=== PATIENT | male | born 1980 | race Caucasian/White ===

== ENCOUNTER 2016-07-25 08:00 | Emergency (ER) | payer MEDICAID ==
[2016-07-25 08:11] VITALS: BP 118/63
--- NOTE | 2016-07-25 08:41 | EDM.PDOC ---
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 Past medical history: As per history of present illness and as reviewed below otherwise noncontributory. Surgical history: As per history of present illness and as reviewed below otherwise noncontributory. Social history: No reported history of drug or alcohol abuse. Family history: As per history of present illness and as reviewed below otherwise noncontributory. Physical exam: HEENT: Approximately 3 cm moderate depth left temporal parietal scalp laceration is no step-off no depression good hemostasis normocephalic, pupils reactive, negative for conjunctival pallor or scleral icterus, mucous membranes moist, throat clear, neck supple, nontender, trachea midline. Lungs: Clear to auscultation, breath sounds equal bilaterally, chest nontender. Heart: S1S2, regular, negative for clicks, rubs, or JVD. Abdomen: Soft, nondistended, nontender. Negative for masses or hepatosplenomegaly. Negative for costovertebral tenderness. Pelvis: Stable nontender. Genitourinary: Deferred. Rectal: Deferred. Extremities: Atraumatic, negative for cords or calf pain. Neurovascular unremarkable. Neuro: Awake at baseline her and nonfocal neuro exam Diagnostics: CT brain Therapeutics: Wound Was irrigated with copious amounts 0.9 normal saline closed with stainless steel salvador bacitracin was applied Impression: #1 observation status post fall with head injury/scalp laceration Definitive disposition and diagnosis as appropriate pending reevaluation and review of above. - Related Data Allergies Allergy/AdvReac Type Severity Reaction Status Date / Time No Known Allergies Allergy Verified 07/25/16 08:08 Home Meds: Home Meds Chalestryamine DAILY 12/09/13 [History] LORazepam 1 mg PO PRN 12/09/13 [History] Melatonin 12 mg PO BEDTIME 12/09/13 [History] Multivitamins/Minerals [Vitamins and Minerals] 1 DAILY 12/09/13 [History] Nystatin [Nystatin Crm] 15 gm TOP BID 12/09/13 [History] OXcarbazepine [Trileptal] 300 mg PO TID 12/09/13 [History] Riboflavin 400 mg PO DAILY 12/09/13 [History] Ubidecarenone [Coenzyme Q10] 300 mg PO DAILY 12/09/13 [History] Past Medical History Cardiovascular History: Reports: None Respiratory History: Reports: Pneumothorax, Other (See Below) Other Respiratory History: pulomary stenosis, 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 Neurological History: Reports: Cerebral Palsy, Other (See Below) Other Neuro History: spastic quadriplegia - Past Surgical History HEENT Surgical History: Reports: Eye Surgery, Other (See Below) Other HEENT Surgeries/Procedures: surgery to open tear ducts, dental surgery GI Surgical History: Reports: Colostomy Musculoskeletal Surgical History: Reports: Other (See Below) Other Musculoskeletal Surgeries/Procedures:: lengthen of heel cords Social & Family History - Family History Family Medical History: Noncontributory - Tobacco Use Smoking Status *Q: Never Smoker - Caffeine Use Caffeine Use: Reports: None - Alcohol Use Days Per Week of Alcohol Use: 0 - Recreational Drug Use Recreational Drug Use: No ED ROS GENERAL - Review of Systems Review Of Systems: ROS reveals no pertinent complaints other than HPI. ED EXAM, HEAD INJURY - Physical Exam Exam: See Below (See dictation) Course - Vital Signs Last Recorded V/S: Last Vital Signs Temp 36.3 C 07/25/16 08:08 Pulse 70 07/25/16 08:08 Resp 18 07/25/16 08:08 BP 118/63 07/25/16 08:08 Pulse Ox 97 07/25/16 08:08 - Orders/Labs/Meds Orders: Active Orders 24 hr Category Date Time Status Head wo Cont [CT] Stat Exams 07/25/16 08:02 Taken Departure - Departure Time of Disposition: 08:40 Disposition: Home, Self-Care 01 Condition: good Clinical Impression: Head injury, Scalp laceration - Discharge Information Forms: ED Department Discharge Additional Instructions: The following information is given to patients seen in the emergency department who are being discharged to home. This information is to outline your options for follow-up care. We provide all patients seen in our emergency department with a follow-up referral. The need for follow-up, as well as the timing and circumstances, are variable depending upon the specifics of your emergency department visit. If you don't have a primary care physician on staff, we will provide you with a referral. We always advise you to contact your personal physician following an emergency department visit to inform them of the circumstance of the visit and for follow-up with them and/or the need for any referrals to a consulting specialist. The emergency department will also refer you to a specialist when appropriate. This referral assures that you have the opportunity for followup care with a specialist. All of these measure are taken in an effort to provide you with optimal care, which includes your followup. Under all circumstances we always encourage you to contact your private physician who remains a resource for coordinating your care. When calling for followup care, please make the office aware that this follow-up is from your recent emergency room visit. If for any reason you are refused follow-up, please contact the [facility] emergency department at and asked to speak to the emergency department charge nurse. [] Followup primary medical doctor one to 2 days staple removal 10-14 days return as needed discussed - My Orders Last 24 Hours: My Active Orders 07/25/16 08:02 Head wo Cont [CT] Stat - Assessment/Plan Last 24 Hours: My Active Orders 07/25/16 08:02 Head wo Cont [CT] Stat
--- NOTE | 2016-07-25 08:45 | CT ---
EXAMINATION: Non contrast CT head. Coronal and sagittal reformats. HISTORY: Fall FINDINGS: No evidence of intra or extra axial hemorrhage, mass, midline shift, hydrocephalus or edema. No hypoattenuation changes in the major vascular territories to suggest acute infarct. No abnormal intracranial calcifications are detected. No evidence of substantial vascular calcifica tions. The paranasal sinuses are grossly clear. There is a trace fluid within the left mastoid air cells. T he middle ears are clear. Pituitary fossa appears unremarkable. The orbits and globes are symmetric. Calvarium is intact. No evidence of skull fracture. There is a small subcutaneous laceration along t he left temporal region. IMPRESSION: No acute intracranial findings.
== END 2016-07-25 09:00 | disposition home or self-care (01) ==
LOC: MW.ED 08:00
DX: S01.01XA Laceration without foreign body of scalp, initial encounter (principal); Z98.890 Other specified postprocedural states; Z79.899 Other long term (current) drug therapy; W19.XXXA Unspecified fall, initial encounter
CPT/HCPCS: 12002; 70450; 70450-26; 99283-25; 99284

== ENCOUNTER 2016-08-05 08:36 | Emergency (ER) | payer MEDICAID ==
--- NOTE | 2016-08-05 08:50 | EDM.PDOC ---
ED HPI GENERAL MEDICAL PROBLEM - General Chief Complaint: Wound Recheck Stated Complaint: STICHES REMOVED Time Seen by Provider: 08/05/16 08:43 Source of Information: Reports: Patient, Family History Limitations: Reports: Other. Denies: No Limitations - History of Present Illness INITIAL COMMENTS - FREE TEXT/NARRATIVE: History of present illness: [] Patient presents for a wound check and removal of scalp salvador. Patient presents with family as he is nonverbal. No complaints or history of fevers. Review of systems: As per history of present illness and below otherwise all systems reviewed and negative. Past medical history: As per history of present illness and as reviewed below otherwise noncontributory. Surgical history: As per history of present illness and as reviewed below otherwise noncontributory. Social history: No reported history of drug or alcohol abuse. Family history: As per history of present illness and as reviewed below otherwise noncontributory. Physical exam: General: Well developed, well nourished in NAD HEENT: Laceration healing without signs of infection, salvador removed by nursing , normocephalic, pupils reactive, negative for conjunctival pallor or scleral icterus, mucous membranes moist, throat clear, neck supple, nontender, trachea midline. Lungs: Clear to auscultation, breath sounds equal bilaterally, chest nontender. Heart: S1S2, regular, negative for clicks, rubs, or JVD. Abdomen: Soft, nondistended, nontender. Negative for masses or hepatosplenomegaly. Negative for costovertebral tenderness. Pelvis: Stable nontender. Genitourinary: Deferred. Rectal: Deferred. Extremities: Atraumatic. Neurovascular unremarkable. Neuro: Awake, alert. Cerebellum unremarkable. Motor and sensory unremarkable throughout. Exam nonfocal. Diagnostics: [] Therapeutics: [] Impression: [] Wound check/staple removal of scalp laceration Plan: [] Followup PMD as needed Definitive disposition and diagnosis as appropriate pending reevaluation and review of above. - Related Data Allergies Allergy/AdvReac Type Severity Reaction Status Date / Time No Known Allergies Allergy Verified 07/25/16 08:08 Home Meds: Home Meds Melatonin 12 mg PO BEDTIME 12/09/13 [History] Multivitamins/Minerals [Vitamins and Minerals] 1 tab PO DAILY 12/09/13 [History] Nystatin [Nystatin Crm] 1 gm TOP BID 12/09/13 [History] OXcarbazepine [Trileptal] 300 mg PO TID 12/09/13 [History] Riboflavin 400 mg PO DAILY 12/09/13 [History] Ubidecarenone [Coenzyme Q10] 300 mg PO DAILY 12/09/13 [History] Ascorbic Acid [Vitamin C] 1,000 mg PO DAILY 07/25/16 [History] Benzonatate 200 mg PO Q8H PRN 07/25/16 [History] Cholestyramine/Sucrose [Cholestyramine] 4 gm PO WITHDINNER 07/25/16 [History] Cyanocobalamin (Vitamin B-12) [B-12] 1,000 mcg PO DAILY 07/25/16 [History] Folic Acid 0.4 mg PO DAILY 07/25/16 [History] LORazepam [Ativan] 2 mg PO ONCALL PRN 07/25/16 [History] Thiamine HCl [B-1] 400 mg PO DAILY 07/25/16 [History] Vitamin E 400 unit PO DAILY 07/25/16 [History] Past Medical History Cardiovascular History: Reports: None Respiratory History: Reports: Pneumothorax, Other (See Below) Other Respiratory History: pulomary stenosis, 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 Neurological History: Reports: Cerebral Palsy, Other (See Below) Other Neuro History: spastic quadriplegia - Past Surgical History HEENT Surgical History: Reports: Eye Surgery, Other (See Below) Other HEENT Surgeries/Procedures: surgery to open tear ducts, dental surgery GI Surgical History: Reports: Colostomy Musculoskeletal Surgical History: Reports: Other (See Below) Other Musculoskeletal Surgeries/Procedures:: lengthen of heel cords Social & Family History - Family History Family Medical History: Noncontributory - Tobacco Use Smoking Status *Q: Never Smoker - Caffeine Use Caffeine Use: Reports: None - Alcohol Use Days Per Week of Alcohol Use: 0 - Recreational Drug Use Recreational Drug Use: No ED ROS GENERAL - Review of Systems Review Of Systems: Unable To Obtain ED EXAM, SKIN/RASH Exam: See Below (See history of present illness) Departure - Departure Time of Disposition: 08:49 Disposition: Home, Self-Care 01 Condition: good Clinical Impression: Visit for wound check, Removal of salvador - Discharge Information Forms: ED Department Discharge Additional Instructions: The following information is given to patients seen in the emergency department who are being discharged to home. This information is to outline your options for follow-up care. We provide all patients seen in our emergency department with a follow-up referral. The need for follow-up, as well as the timing and circumstances, are variable depending upon the specifics of your emergency department visit. If you don't have a primary care physician on staff, we will provide you with a referral. We always advise you to contact your personal physician following an emergency department visit to inform them of the circumstance of the visit and for follow-up with them and/or the need for any referrals to a consulting specialist. The emergency department will also refer you to a specialist when appropriate. This referral assures that you have the opportunity for follow-up care with a specialist. All of these measure are taken in an effort to provide you with optimal care, which includes your follow-up. Under all circumstances we always encourage you to contact your private physician who remains a resource for coordinating your care. When calling for follow-up care, please make the office aware that this follow-up is from your recent emergency room visit. If for any reason you are refused follow-up, please contact the [facility] Emergency Department at and asked to speak to the emergency department charge nurse. [facility] [address] [place] [id number]
== END 2016-08-05 08:49 | disposition home or self-care (01) ==
LOC: MW.ED 08:36
DX: S01.01XD Laceration without foreign body of scalp, subsequent encounter (principal); X58.XXXD Exposure to other specified factors, subsequent encounter

== ENCOUNTER 2017-12-03 14:41 | Emergency (ER) | payer MEDICAID ==
[2017-12-03 14:56] VITALS: BP 84/48
--- NOTE | 2017-12-03 15:03 | EDM.PDOC ---
ED HPI GENERAL MEDICAL PROBLEM - General Stated Complaint: left hand swelling Time Seen by Provider: 12/03/17 14:42 Source of Information: Reports: Other History Limitations: Reports: Physical Impairment - History of Present Illness INITIAL COMMENTS - FREE TEXT/NARRATIVE: History of present illness: []Patient has severe cerebral palsy and nonverbal was eating pizza this afternoon and his caregivers noted his left hand swelling with redness. Patient frequently puts his fingers in his mouth and there is noted pinpoint area over his dorsal left ring PIP joint or the skin is broken. There is no purulent drainage. He has not been having fevers and he is acting normal. Review of systems: As per history of present illness and below otherwise all systems reviewed and negative. Past medical history: As per history of present illness and as reviewed below otherwise noncontributory. Surgical history: As per history of present illness and as reviewed below otherwise noncontributory. Social history: No reported history of drug or alcohol abuse. Family history: As per history of present illness and as reviewed below otherwise noncontributory. Physical exam: General: Well developed, well nourished in NAD uncooperative for exam HEENT: Atraumatic, normocephalic, pupils reactive, negative for conjunctival pallor or scleral icterus, mucous membranes moist, throat clear, neck supple, nontender, trachea midline. Lungs: Clear to auscultation, breath sounds equal bilaterally, chest nontender. Heart: S1S2, regular, negative for clicks, rubs, or JVD. Abdomen: Soft, nondistended, nontender. Negative for masses or hepatosplenomegaly. Negative for costovertebral tenderness. Pelvis: Stable nontender. Genitourinary: Deferred. Rectal: Deferred. Extremities: Left hand with erythema and swelling over the MCP joints the small ring and middle fingers, there is noted skin breakage of the dorsal ring PIP joint there is no purulent drainage or fluctuance is noted to move his hand and finger joints spontaneously, brisk capillary refill. Neurovascular unremarkable. Neuro: Awake, alert, Exam nonfocal. Skin:warm and dry Diagnostics: None Therapeutics: None ED Course: Clinical Impression: Left hand cellulitis without tenosynovitis Prescriptions: Keflex Plan: Warm soaks keep hand clean take antibiotics as directed follow-up with primary care Definitive disposition and diagnosis as appropriate pending reevaluation and review of above. - Related Data Allergies Allergy/AdvReac Type Severity Reaction Status Date / Time No Known Allergies Allergy Verified 12/03/17 14:56 Home Meds: Home Meds Melatonin 12 mg PO BEDTIME 12/09/13 [History] Multivitamins/Minerals [Vitamins and Minerals] 1 tab PO DAILY 12/09/13 [History] OXcarbazepine [Trileptal] 300 mg PO TID 12/09/13 [History] Riboflavin 400 mg PO DAILY 12/09/13 [History] Ubidecarenone [Coenzyme Q10] 300 mg PO DAILY 12/09/13 [History] Ascorbic Acid [Vitamin C] 1,000 mg PO DAILY 07/25/16 [History] Cholestyramine/Sucrose [Cholestyramine] 4 gm PO WITHDINNER 07/25/16 [History] Cyanocobalamin (Vitamin B-12) [B-12] 1,000 mcg PO DAILY 07/25/16 [History] Folic Acid 0.4 mg PO DAILY 07/25/16 [History] LORazepam [Ativan] 2 mg PO ONCALL PRN 07/25/16 [History] Vitamin E 400 unit PO DAILY 07/25/16 [History] cephALEXin [Keflex] 500 mg PO Q8H #21 cap 12/03/17 [Rx] Past Medical History Cardiovascular History: Reports: None Respiratory History: Reports: Pneumothorax, Other (See Below) Other Respiratory History: pulomary stenosis, 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 Neurological History: Reports: Cerebral Palsy, Other (See Below) Other Neuro History: spastic quadriplegia - Past Surgical History HEENT Surgical History: Reports: Eye Surgery, Other (See Below) Other HEENT Surgeries/Procedures: surgery to open tear ducts, dental surgery GI Surgical History: Reports: Colostomy Musculoskeletal Surgical History: Reports: Other (See Below) Other Musculoskeletal Surgeries/Procedures:: lengthen of heel cords Social & Family History - Family History Family Medical History: Noncontributory - Caffeine Use Caffeine Use: Reports: None Review of Systems - Review of Systems Review Of Systems: ROS reveals no pertinent complaints other than HPI. ED EXAM, GENERAL - Physical Exam Exam: See Below (See history of present illness) Course - Vital Signs Last Recorded V/S: Last Vital Signs Temp 97.6 F 12/03/17 14:54 Pulse Resp 20 12/03/17 14:54 BP 84/48 L 12/03/17 14:54 Pulse Ox Departure - Departure Time of Disposition: 15:03 Disposition: Home, Self-Care 01 Condition: Good Clinical Impression: Cellulitis of left hand - Discharge Information *PRESCRIPTION DRUG MONITORING PROGRAM REVIEWED*: Not Applicable *COPY OF PRESCRIPTION DRUG MONITORING REPORT IN PATIENT JEAN-PIERRE: Not Applicable Prescriptions: cephALEXin [Keflex] 500 mg PO Q8H #21 cap Additional Instructions: The following information is given to patients seen in the emergency department who are being discharged to home. This information is to outline your options for follow-up care. We provide all patients seen in our emergency department with a follow-up referral. The need for follow-up, as well as the timing and circumstances, are variable depending upon the specifics of your emergency department visit. If you don't have a primary care physician on staff, we will provide you with a referral. We always advise you to contact your personal physician following an emergency department visit to inform them of the circumstance of the visit and for follow-up with them and/or the need for any referrals to a consulting specialist. The emergency department will also refer you to a specialist when appropriate. This referral assures that you have the opportunity for follow-up care with a specialist. All of these measure are taken in an effort to provide you with optimal care, which includes your follow-up. Under all circumstances we always encourage you to contact your private physician who remains a resource for coordinating your care. When calling for follow-up care, please make the office aware that this follow-up is from your recent emergency room visit. If for any reason you are refused follow-up, please contact the [facility] Emergency Department at and asked to speak to the emergency department charge nurse. Warm soaks take antibiotics as directed follow-up with primary care [facility] [place] [id number]
== END 2017-12-03 15:10 | disposition home or self-care (01) ==
LOC: MW.ED 14:41
DX: L03.114 Cellulitis of left upper limb (principal); M65.9 Synovitis and tenosynovitis, unspecified; Z79.899 Other long term (current) drug therapy
CPT/HCPCS: 99283

== ENCOUNTER 2018-06-25 08:11 | Emergency (ER) | payer MEDICAID ==
--- NOTE | 2018-06-25 08:40 | EDM.PDOC ---
ED HPI GENERAL MEDICAL PROBLEM - General Chief Complaint: Neuro Symptoms/Deficits Stated Complaint: AMB Time Seen by Provider: 06/25/18 08:37 - History of Present Illness INITIAL COMMENTS - FREE TEXT/NARRATIVE: HISTORY AND PHYSICAL: History of present illness: Patient is a 37-year-old white male [place] with the known seizure disorders been seizure-free for years who presents after generalized seizure lasting approximately 8 minutes there was no associated trauma he's been in his usual state of health until postictal period is baseline on arrival. There's been no fever chills vomiting no recent trauma and no other complaints. He is on Tegretol and does have his levels checked regularly and have not been reported to be abnormal. Review of systems: As per history of present illness and below otherwise all systems reviewed and negative. Past medical history: As per history of present illness and as reviewed below otherwise noncontributory. Surgical history: As per history of present illness and as reviewed below otherwise noncontributory. Social history: No reported history of drug or alcohol abuse. Family history: As per history of present illness and as reviewed below otherwise noncontributory. Physical exam: HEENT: Atraumatic, normocephalic, pupils reactive, negative for conjunctival pallor or scleral icterus, mucous membranes moist, throat clear, neck supple, nontender, trachea midline. Lungs: Clear to auscultation, breath sounds equal bilaterally, chest nontender. Heart: S1S2, regular, negative for clicks, rubs, or JVD. Abdomen: Soft, nondistended, nontender. Negative for masses or hepatosplenomegaly. Negative for costovertebral tenderness. Pelvis: Stable nontender. Genitourinary: Deferred. Rectal: Deferred. Extremities: Atraumatic, negative for cords or calf pain. Neurovascular unremarkable. Neuro: Awake, alert, moves all extremities baseline per family Diagnostics: CBC CMP carbamazepine level chest x-ray CT brain Therapeutics: None Impression: #1 seizure with known seizure disorder Definitive disposition and diagnosis as appropriate pending reevaluation and review of above. - Related Data Allergies Allergy/AdvReac Type Severity Reaction Status Date / Time No Known Allergies Allergy Verified 06/25/18 08:14 Home Meds: Home Meds Melatonin 12 mg PO BEDTIME 12/09/13 [History] Multivitamins/Minerals [Vitamins and Minerals] 1 tab PO DAILY 12/09/13 [History] OXcarbazepine [Trileptal] 300 mg PO TID 12/09/13 [History] Riboflavin 400 mg PO DAILY 12/09/13 [History] Ubidecarenone [Coenzyme Q10] 300 mg PO DAILY 12/09/13 [History] Ascorbic Acid [Vitamin C] 1,000 mg PO DAILY 07/25/16 [History] Cholestyramine/Sucrose [Cholestyramine] 4 gm PO WITHDINNER 07/25/16 [History] Cyanocobalamin (Vitamin B-12) [B-12] 1,000 mcg PO DAILY 07/25/16 [History] Folic Acid 0.4 mg PO DAILY 07/25/16 [History] Vitamin E 400 unit PO DAILY 07/25/16 [History] Thiamine [Vitamin B-1] 400 mg PO DAILY 02/02/18 [History] traZODone HCl [Trazodone HCl] 50 mg PO BEDTIME 02/16/18 [History] Past Medical History Cardiovascular History: Reports: None Respiratory History: Reports: Pneumothorax, Other (See Below) Other Respiratory History: pulomary stenosis, 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 Neurological History: Reports: Cerebral Palsy, Seizure, Other (See Below) Other Neuro History: spastic quadriplegia Psychiatric History: Reports: Anxiety - Infectious Disease History Infectious Disease History: Reports: None - Past Surgical History HEENT Surgical History: Reports: Eye Surgery, Other (See Below) Other HEENT Surgeries/Procedures: surgery to open tear ducts, dental surgery GI Surgical History: Reports: Colostomy Musculoskeletal Surgical History: Reports: Other (See Below) Other Musculoskeletal Surgeries/Procedures:: lengthen of heel cords Social & Family History - Family History Family Medical History: Noncontributory - Tobacco Use Smoking Status *Q: Unknown Ever Smoked - Caffeine Use Caffeine Use: Reports: Coffee ED ROS GENERAL - Review of Systems Review Of Systems: ROS reveals no pertinent complaints other than HPI. ED EXAM, GENERAL - Physical Exam Exam: See Below (The dictation) Course - Vital Signs Last Recorded V/S: Last Vital Signs Temp 36.8 C 06/25/18 09:23 Pulse 61 06/25/18 09:23 Resp 12 06/25/18 09:23 BP 110/70 06/25/18 09:23 Pulse Ox 97 04/26/19 09:23 - Orders/Labs/Meds Orders: Active Orders 24 hr Category Date Time Status CARBAMAZEPINE,TEGRETOL [CHEM] Stat Lab 06/25/18 08:45 Results COMPREHENSIVE METABOLIC PN,CMP [CHEM] Stat Lab 06/25/18 08:45 Results Labs: Laboratory Tests 06/25/18 06/25/18 Range/Units 08:45 08:45 WBC 2.49 L (4.0-11.0) K/uL RBC 4.56 (4.50-5.90) M/uL Hgb 15.2 (13.0-17.0) g/dL Hct 43.7 (38.0-50.0) % MCV 95.8 (80.0-98.0) fL MCH 33.3 H (27.0-32.0) pg MCHC 34.8 (31.0-37.0) g/dL RDW Std Deviation 51.5 (28.0-62.0) fl RDW Coeff of Yolanda 15 (11.0-15.0) % Plt Count 159 (150-400) K/uL MPV 8.50 (7.40-12.00) fL Neut % (Auto) 59.5 (48.0-80.0) % Lymph % (Auto) 27.7 (16.0-40.0) % [place] % (Auto) 11.2 (0.0-15.0) % Eos % (Auto) 1.2 (0.0-7.0) % Baso % (Auto) 0.4 (0.0-1.5) % Neut # (Auto) 1.5 (1.4-5.7) K/uL Lymph # (Auto) 0.7 (0.6-2.4) K/uL [place] # (Auto) 0.3 (0.0-0.8) K/uL Eos # (Auto) 0.0 (0.0-0.7) K/uL Baso # (Auto) 0.0 (0.0-0.1) K/uL Nucleated RBC % 0.0 /100WBC Nucleated RBCs # 0 K/uL Sodium 138 (136-148) mmol/L Potassium 4.4 (3.5-5.1) mmol/L Chloride 104 (98-107) mmol/L Carbon Dioxide 21.1 (21.0-32.0) mmol/L BUN 21 H (7.0-18.0) mg/dL Creatinine 0.9 (0.8-1.3) mg/dL Est Cr Clr Drug Dosing 71.40 mL/min Estimated GFR (MDRD) > 60.0 ml/min Glucose 106 (74-106) mg/dL Calcium 9.1 (8.5-10.1) mg/dL Total Bilirubin 0.4 (0.2-1.0) mg/dL AST 33 (15-37) IU/L ALT 45 (14-63) IU/L Alkaline Phosphatase 224 H (46-116) U/L Total Protein 7.2 (6.4-8.2) g/dL Albumin 4.1 (3.4-5.0) g/dL Globulin 3.1 (2.6-4.0) g/dL Albumin/Globulin Ratio 1.3 (0.9-1.6) Departure - Departure Time of Disposition: 09:25 Disposition: Home, Self-Care 01 Clinical Impression: Seizure, Encounter for medical screening examination - Discharge Information Referrals: Layton Hu MD [Primary Care Provider] - Forms: ED Department Discharge Additional Instructions: The following information is given to patients seen in the emergency department who are being discharged to home. This information is to outline your options for follow-up care. We provide all patients seen in our emergency department with a follow-up referral. The need for follow-up, as well as the timing and circumstances, are variable depending upon the specifics of your emergency department visit. If you don't have a primary care physician on staff, we will provide you with a referral. We always advise you to contact your personal physician following an emergency department visit to inform them of the circumstance of the visit and for follow-up with them and/or the need for any referrals to a consulting specialist. The emergency department will also refer you to a specialist when appropriate. This referral assures that you have the opportunity for followup care with a specialist. All of these measure are taken in an effort to provide you with optimal care, which includes your followup. Under all circumstances we always encourage you to contact your private physician who remains a resource for coordinating your care. When calling for followup care, please make the office aware that this follow-up is from your recent emergency room visit. If for any reason you are refused follow-up, please contact the [facility] emergency department at and asked to speak to the emergency department charge nurse. Continue current Medications as prescribed follow-up primary medical doctor as needed as discussed and return as needed as discussed - My Orders Last 24 Hours: My Active Orders 06/25/18 08:45 CARBAMAZEPINE,TEGRETOL [CHEM] Stat COMPREHENSIVE METABOLIC PN,CMP [CHEM] Stat - Assessment/Plan Last 24 Hours: My Active Orders 06/25/18 08:45 CARBAMAZEPINE,TEGRETOL [CHEM] Stat COMPREHENSIVE METABOLIC PN,CMP [CHEM] Stat
[2018-06-25] MEDS ORDERED: Gadobenate Dimeglumine 529 MG/ML 20 ML SDV IVPUSH STA (08:52)
--- NOTE | 2018-06-25 09:15 | CT ---
EXAMINATION: Non contrast CT head. Coronal and sagittal reformats. HISTORY: Seizure COMPARISON: 07/25/2016 FINDINGS: No evidence of intra or extra axial hemorrhage, mass, midline shift, hydrocephalus or edema. Stable mild prominence of the lateral ventricles. Likely encephalomalacia within the temporal lobes bilaterally, not well characterized due to motion, however not significantly changed. No hypoattenuation changes in the major vascular territories to suggest acute infarct. No abnormal intracranial calcifications are detected. No evidence of substantial vascular calcifications. Stable prominence of the cisterna magna. Paranasal sinuses and mastoid air cells are well aerated without substantial findings. Mostly empty sella. The calvarium is intact. No evidence of skull fracture. IMPRESSION: No acute intracranial findings.
[2018-06-25 09:16] LABS: CHLORIDE,CL 104 mmol/L (98-107); SODIUM,NA 138 mmol/L (136-148)
--- NOTE | 2018-06-25 09:21 | CR ---
EXAMINATION: Portable chest radiograph. HISTORY: Seizure. FINDINGS: The trachea is midline. Heart is normal in size for technique. The cardiomediastinal silhouette is within normal limits. No pulmonary infiltrates, effusions or pneumothorax. Healing right humerus fracture is noted. Dextrocurvature of the thoracic spine. IMPRESSION: No acute cardiopulmonary process.
[2018-06-25 09:24] VITALS: BP 110/70
== END 2018-06-25 09:53 | disposition home or self-care (01) ==
LOC: MW.ED 08:11
DX: G40.909 Epilepsy, unspecified, not intractable, without status epilepticus (principal); Z79.899 Other long term (current) drug therapy
CPT/HCPCS: 36415; 70450; 70450-26; 71045; 71045-26; 80053; 80156; 85025; 93005; 99283; 99284-25

== ENCOUNTER 2018-10-03 11:22 | Emergency (ER) | payer MEDICAID ==
[2018-10-03 11:35] VITALS: PULSE 94
--- NOTE | 2018-10-03 11:44 | EDM.PDOC ---
ED HPI GENERAL MEDICAL PROBLEM - General Stated Complaint: CHEST PAIN Time Seen by Provider: 10/03/18 11:29 Source of Information: Reports: Family History Limitations: Reports: No Limitations - History of Present Illness INITIAL COMMENTS - FREE TEXT/NARRATIVE: HISTORY AND PHYSICAL: History of present illness: Patient is a 38-year-old male who presents to the emergency room with his family with concerns of chest pain. Patient does live in a [facility] routinely. Yesterday the father states he brought him home and had picked him up to move him into a chair. Typically when the patient is lifted and moved, there is no problems. Yesterday he noted that he was grimacing when he was lifting him around his chest. The patient is typically non-verbal although can nod yes and no to questions appropriately. The father asked the patient if his chest hurts and he nodded yes. There is a small bruise noted to the left upper anterior chest, although appears old. Past medical history of seizure disorder, cerebral palsy and spastic musculature. Review of systems: As per history of present illness and below otherwise all systems reviewed and negative. Past medical history: As per history of present illness and as reviewed below otherwise noncontributory. Surgical history: As per history of present illness and as reviewed below otherwise noncontributory. Social history: See social history for further information Family history: As per history of present illness and as reviewed below otherwise noncontributory. Physical exam: General: Well-developed and well-nourished 38-year-old male. He is alert and appropriate for self. He is nonverbal which is normal for him. Typically does use a walker to transfer short distances, otherwise uses a chair. Vital signs are stable and have been reviewed by me. HEENT: Atraumatic, normocephalic, pupils equal and reactive bilaterally, negative for conjunctival pallor or scleral icterus, mucous membranes moist, TMs normal bilaterally, throat clear, neck supple, nontender, trachea midline. No drooling or trismus noted. No meningeal signs. No hot potato voice noted. Lungs: Clear to auscultation, breath sounds equal bilaterally, chest nontender. Heart: S1S2, regular rate and rhythm without overt murmur Abdomen: Soft, nondistended, nontender. Skin: Healing bruising noted to the left upper anterior chest wall. Otherwise skin is intact, warm, dry. No lesions or rashes noted. Extremities: Atraumatic, moves all extremities per self without difficulty or deficits, negative for cords or calf pain. Neurovascular unremarkable. Neuro: Awake, alert, oriented. Cranial nerves II through XII unremarkable. Cerebellum unremarkable. Motor and sensory unremarkable throughout. Exam nonfocal. Notes: Lab work is unremarkable. Chest x-ray shows no acute findings. Findings were shared with the patient and family members at bedside. Mom does now recall that he did hit the left side of his chest wall on the bathtub earlier this weekend. Will give one tablet of tramadol while here and encouraged them to use Tylenol and ibuprofen at the [facility]. Supportive care measures were reviewed and discussed. Voices understanding and is agreeable to plan of care. Denies any further questions or concerns at this time. Diagnostics: CBC, CMP, Troponin, EKG, CXR Therapeutics: None Prescription: None Impression: Chest Wall Pain Plan: 1. Please use Tylenol and/or Ibuprofen as needed for pain and fever management. 2. Gentle heat and/ice as needed. 3. Please follow up with your primary care provider. Return to the ED as needed as discussed. Definitive disposition and diagnosis as appropriate pending reevaluation and review of above. - Related Data Allergies Allergy/AdvReac Type Severity Reaction Status Date / Time No Known Allergies Allergy Verified 06/25/18 08:14 Home Meds: Home Meds Melatonin 12 mg PO BEDTIME 12/09/13 [History] Multivitamins/Minerals [Vitamins and Minerals] 1 tab PO DAILY 12/09/13 [History] OXcarbazepine [Trileptal] 300 mg PO TID 12/09/13 [History] Riboflavin 400 mg PO DAILY 12/09/13 [History] Ubidecarenone [Coenzyme Q10] 300 mg PO DAILY 12/09/13 [History] Ascorbic Acid [Vitamin C] 1,000 mg PO DAILY 07/25/16 [History] Cholestyramine/Sucrose [Cholestyramine] 4 gm PO WITHDINNER 07/25/16 [History] Cyanocobalamin (Vitamin B-12) [B-12] 1,000 mcg PO DAILY 07/25/16 [History] Folic Acid 0.4 mg PO DAILY 07/25/16 [History] Vitamin E 400 unit PO DAILY 07/25/16 [History] Thiamine [Vitamin B-1] 400 mg PO DAILY 12/04/18 [History] traZODone HCl [Trazodone HCl] 50 mg PO BEDTIME 02/16/18 [History] Past Medical History Cardiovascular History: Reports: None Respiratory History: Reports: Pneumothorax, Other (See Below) Other Respiratory History: pulomary stenosis, 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 Neurological History: Reports: Cerebral Palsy, Seizure, Other (See Below) Other Neuro History: spastic quadriplegia Psychiatric History: Reports: Anxiety - Infectious Disease History Infectious Disease History: Reports: None - Past Surgical History HEENT Surgical History: Reports: Eye Surgery, Other (See Below) Other HEENT Surgeries/Procedures: surgery to open tear ducts, dental surgery GI Surgical History: Reports: Colostomy Musculoskeletal Surgical History: Reports: Other (See Below) Other Musculoskeletal Surgeries/Procedures:: lengthen of heel cords Social & Family History - Family History Family Medical History: Noncontributory - Caffeine Use Caffeine Use: Reports: Coffee ED ROS GENERAL - Review of Systems Review Of Systems: ROS reveals no pertinent complaints other than HPI. ED EXAM, GENERAL - Physical Exam Exam: See Below (See dictation) Course - Vital Signs Last Recorded V/S: Last Vital Signs Temp 97.7 F 10/03/18 11:30 Pulse 94 10/03/18 11:30 Resp BP 125/53 L 10/03/18 11:30 Pulse Ox 96 10/03/18 11:30 - Orders/Labs/Meds Orders: Active Orders 24 hr Category Date Time Status EKG Documentation Completion [RC] STAT Care 10/03/18 11:27 Active traMADol [Ultram] Med 10/03/18 12:33 Once 50 mg PO ONETIME ONE Labs: Laboratory Tests 10/03/18 10/03/18 Range/Units 11:41 11:41 WBC 5.19 (4.0-11.0) K/uL RBC 4.51 (4.50-5.90) M/uL Hgb 15.2 (13.0-17.0) g/dL Hct 44.2 (38.0-50.0) % MCV 98.0 (80.0-98.0) fL MCH 33.7 H (27.0-32.0) pg MCHC 34.4 (31.0-37.0) g/dL RDW Std Deviation 51.5 (28.0-62.0) fl RDW Coeff of Yolanda 14 (11.0-15.0) % Plt Count 151 (150-400) K/uL MPV 8.60 (7.40-12.00) fL Neut % (Auto) 78.8 (48.0-80.0) % Lymph % (Auto) 12.7 L (16.0-40.0) % [place] % (Auto) 8.1 (0.0-15.0) % Eos % (Auto) 0.2 (0.0-7.0) % Baso % (Auto) 0.2 (0.0-1.5) % Neut # (Auto) 4.1 (1.4-5.7) K/uL Lymph # (Auto) 0.7 (0.6-2.4) K/uL [place] # (Auto) 0.4 (0.0-0.8) K/uL Eos # (Auto) 0.0 (0.0-0.7) K/uL Baso # (Auto) 0.0 (0.0-0.1) K/uL Nucleated RBC % 0.0 /100WBC Nucleated RBCs # 0 K/uL Sodium 138 (136-148) mmol/L Potassium 4.3 (3.5-5.1) mmol/L Chloride 103 (98-107) mmol/L Carbon Dioxide 26.3 (21.0-32.0) mmol/L BUN 21 H (7.0-18.0) mg/dL Creatinine 0.7 L (0.8-1.3) mg/dL Est Cr Clr Drug Dosing TNP Estimated GFR (MDRD) > 60.0 ml/min Glucose 125 H (74-106) mg/dL Calcium 9.3 (8.5-10.1) mg/dL Total Bilirubin 0.2 (0.2-1.0) mg/dL AST 26 (15-37) IU/L ALT 43 (14-63) IU/L Alkaline Phosphatase 195 H (46-116) U/L Troponin I < 0.050 (0.000-0.056) ng/mL Total Protein 7.6 (6.4-8.2) g/dL Albumin 4.2 (3.4-5.0) g/dL Globulin 3.4 (2.6-4.0) g/dL Albumin/Globulin Ratio 1.2 (0.9-1.6) Departure - Departure Time of Disposition: 12:35 Disposition: Home, Self-Care 01 Clinical Impression: Chest wall pain - Discharge Information Instructions: Chest Wall Pain, [id number] Referrals: PCP,Unknown [Primary Care Provider] - Additional Instructions: The following information is given to patients seen in the emergency department who are being discharged to home. This information is to outline your options for follow-up care. We provide all patients seen in our emergency department with a follow-up referral. The need for follow-up, as well as the timing and circumstances, are variable depending upon the specifics of your emergency department visit. If you don't have a primary care physician on staff, we will provide you with a referral. We always advise you to contact your personal physician following an emergency department visit to inform them of the circumstance of the visit and for follow-up with them and/or the need for any referrals to a consulting specialist. The emergency department will also refer you to a specialist when appropriate. This referral assures that you have the opportunity for follow-up care with a specialist. All of these measure are taken in an effort to provide you with optimal care, which includes your follow-up. Under all circumstances we always encourage you to contact your private physician who remains a resource for coordinating your care. When calling for follow-up care, please make the office aware that this follow-up is from your recent emergency room visit. If for any reason you are refused follow-up, please contact the [facility] Emergency Department at and asked to speak to the emergency department charge nurse. [facility] [address] [place] [id number] [address] [address] 1. Please use Tylenol and/or Ibuprofen as needed for pain and fever management. 2. Gentle heat and/ice as needed. 3. Please follow up with your primary care provider. Return to the ED as needed as discussed - My Orders Last 24 Hours: My Active Orders 10/03/18 11:27 EKG Documentation Completion [RC] STAT 10/03/18 12:33 traMADol [Ultram] 50 mg PO ONETIME ONE - Assessment/Plan Last 24 Hours: My Active Orders 10/03/18 11:27 EKG Documentation Completion [RC] STAT 10/03/18 12:33 traMADol [Ultram] 50 mg PO ONETIME ONE
[2018-10-03 12:14] LABS: BLOOD UREA NITROGEN,BUN 21 mg/dL (7.0-18.0); CARBON DIOXIDE,CO2 26.3 mmol/L (21.0-32.0); CHLORIDE,CL 103 mmol/L (98-107); GLUCOSE RANDOM 125 mg/dL (74-106); POTASSIUM,K 4.3 mmol/L (3.5-5.1); SODIUM,NA 138 mmol/L (136-148)
--- NOTE | 2018-10-03 12:18 | CR ---
Indication: Chest pain. Technique: A single AP portable view of the chest was obtained. Comparison: June 25, 2018. Findings: Dextroscoliosis of the spine is identified. Heart is normal in size. The lungs are clear. No infiltrate, pleural effusion, or pneumothorax is identified. Impression: No acute cardiopulmonary process. Dictated by Kassidy Wagoner MD @ Oct 03 2018 12:16PM Signed by Dr. Kassidy Wagoner @ Oct 03 2018 12:17PM
[2018-10-03] MEDS ORDERED: traMADol 50 MG Tab PO ONE (12:33)
[2018-10-03 12:58] VITALS: BP 112/80
== END 2018-10-03 12:53 | disposition home or self-care (01) ==
LOC: MW.ED 11:22
DX: R07.89 Other chest pain (principal); F41.9 Anxiety disorder, unspecified; Z79.899 Other long term (current) drug therapy
CPT/HCPCS: 36415; 71045; 80053; 84484; 85025; 93005; 99285; A9270; 99283

== ENCOUNTER 2019-09-29 07:44 | Emergency (ER) | payer MEDICAID ==
[2019-09-29 08:21] VITALS: BP 118/82; PULSE 90
[2019-09-29] MEDS ORDERED: Bupivacaine 0.5% 10 ML SDV INJECT ONE (08:48)
--- NOTE | 2019-09-29 09:57 | CT ---
CT cervical spine Technique: Multiple axial sections were obtained from above C1 inferiorly to the top of T5. Reconstructed sagittal and coronal images were reviewed. Comparison: No prior cervical spine imaging is available. Findings: Mild deformity is noted within the C7 vertebral body with anterior wedging. This is believed to be old as no acute fracture line is appreciated. Mild endplate concavity is also noted of T2. No acute fracture line is seen in this is also most likely old. Other vertebral body heights are maintained. Disc spaces are preserved. No acute fracture is appreciated. No bony central canal stenosis is seen. Neural foramina show no bony stenosis. No abnormal subluxation is seen. Impression: 1. Findings within C7 and T2 which are likely old as described above. 2. No acute fracture or abnormal subluxation is appreciated. Diagnostic code #2 This report was dictated in MDT
--- NOTE | 2019-09-29 09:58 | CT ---
Head CT Technique: Multiple axial sections through the brain were obtained. Intravenous contrast was not utilized. Comparison: Prior head CT study of 06/25/18 is available. Findings: Ventricles along with basal cisterns and sulci over the convexities are mildly prominent. Diminished density is noted within the basal ganglia on both sides within the extreme capsule which is stable. Mild atrophy is noted of the cerebellum. No other abnormal parenchymal densities are seen. No evidence of intracranial hemorrhage. No midline shift or mass-effect is seen. Deformity of the nasal bone is noted most likely relating to previous injury. No acute calvarial abnormality is seen. Visualized mastoid sinuses and visualized paranasal sinuses show nothing acute. Impression: 1. Mild atrophy as noted above as well as diminished density within the extreme capsule of both basal ganglia. These findings are most likely due to old head trauma. Findings are stable from prior head CT. 2. Deformity of the nasal bone also likely relating to old injury. 3. No acute intracranial abnormality is appreciated. Diagnostic code #2 This report was dictated in MDT
--- NOTE | 2019-09-29 11:36 | EDM.PDOC ---
ED HPI GENERAL MEDICAL PROBLEM - General Chief Complaint: Head Injury Stated Complaint: FALL- TRAUMA TO HEAD Time Seen by Provider: 09/29/19 07:51 Source of Information: Reports: Old Records, Other (Caregiver) History Limitations: Reports: Physical Impairment - History of Present Illness INITIAL COMMENTS - FREE TEXT/NARRATIVE: 39-year-old male with past medical history of cognitive impairment, seizure disorder presenting with head injury. He presents from a longterm with longterm staff. They state that a longterm staff member was helping the patient get out of the bathtub when his legs got tripped up and he fell, striking the back of his head on the toilet. He did not lose consciousness. He is not on any anticoagulant medications. They noticed a laceration to the back of the head. They state that he is acting at his baseline now. No other concerns voiced by staff. - Related Data Allergies Allergy/AdvReac Type Severity Reaction Status Date / Time No Known Allergies Allergy Verified 09/29/19 08:06 Home Meds: Home Meds Melatonin 12 mg PO BEDTIME 12/09/13 [History] Multivitamins/Minerals [Vitamins and Minerals] 1 tab PO DAILY 12/09/13 [History] OXcarbazepine [Trileptal] 300 mg PO TID 12/09/13 [History] Riboflavin (Vitamin B2) [Riboflavin] 400 mg PO DAILY 12/09/13 [History] Ubidecarenone [Coenzyme Q10] 300 mg PO DAILY 12/09/13 [History] Ascorbic Acid [Vitamin C] 1,000 mg PO DAILY 07/25/16 [History] Cholestyramine/Sucrose [Cholestyramine] 4 gm PO WITHDINNER 07/25/16 [History] Cyanocobalamin (Vitamin B-12) [B-12] 1,000 mcg PO DAILY 07/25/16 [History] Folic Acid 0.4 mg PO DAILY 07/25/16 [History] Vitamin E 400 unit PO DAILY 07/25/16 [History] Thiamine [Vitamin B-1] 400 mg PO DAILY 02/02/18 [History] traZODone HCl [Trazodone HCl] 50 mg PO BEDTIME 02/16/18 [History] Past Medical History Other HEENT History: ratna syndrome Cardiovascular History: Reports: None Respiratory History: Reports: Pneumothorax, Other (See Below) Other Respiratory History: pulomary stenosis, 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 Neurological History: Reports: Cerebral Palsy, Seizure, Other (See Below) Other Neuro History: spastic quadriplegia Psychiatric History: Reports: Anxiety - Infectious Disease History Infectious Disease History: Reports: None - Past Surgical History HEENT Surgical History: Reports: Eye Surgery, Other (See Below) Other HEENT Surgeries/Procedures: surgery to open tear ducts, dental surgery GI Surgical History: Reports: Colostomy Musculoskeletal Surgical History: Reports: Other (See Below) Other Musculoskeletal Surgeries/Procedures:: lengthen of heel cords Social & Family History - Family History Family Medical History: Noncontributory - Tobacco Use Smoking Status *Q: Never Smoker Second Hand Smoke Exposure: No - Caffeine Use Caffeine Use: Reports: None - Recreational Drug Use Recreational Drug Use: No ED ROS GENERAL - Review of Systems Review Of Systems: Unable To Obtain Reason Not Obtained: Due to cognitive impairment HEENT: Denies: Nosebleed Respiratory: Denies: Hemoptysis GI/Abdominal: Denies: Vomiting Skin: Reports: Wound Neurological: Denies: Seizure, Syncope ED EXAM, HEAD INJURY - Physical Exam Exam: See Below Text/Narrative:: Vital signs reviewed. Nursing notes reviewed. Constitutional: Awake, alert, non-distressed. Head: 7 cm linear laceration of the occiput Eyes: EOMI, conjunctiva normal, no discharge, no scleral icterus. Pulse 3 mm bilaterally Ears, Nose, Throat: External ears and nose normal, moist oral mucosa. No rhinorrhea or otorrhea, no gao sign or raccoon's eyes Cardiovascular: 2+ radial pulse, capillary refill less than 2 seconds. Pulmonary: normal work of breathing, no accessory muscle use. Abdomen/GI: Soft, nontender, nondistended, no guarding or rigidity, no masses. Musculoskeletal: No deformities. Integumentary: Appropriate color for ethnicity, warm, dry, no pallor or jaundice, no rash. Neurologic: Alert, answering questions appropriately, normal speech, no facial droop, moving all extremities well. Psychiatric: Appropriate mood and affect, normal thought process. ED LACERATION/WOUND & SARAH PROC - Laceration/Wound Repair Occipital Head Lac/wound length in cm: 7 Appearance: Superficial Local Anesthesia - Bupivicaine (Marcaine): 0.5% Plain Local Anesthetic Volume: 4cc Skin Prep: Saline Exploration/Debridement/Repair: Wound Explored, In a Bloodless Field, No Foreign Material Found Closed with: [place] (7 salvador) Tetanus Status Addressed: Yes Complications: No Course - Vital Signs Text/Narrative:: 39-year-old male with blunt head trauma. Acting at baseline at this point. No report of loss of consciousness or seizure activity. CT imaging of the head and cervical spine show old fractures but no acute findings Underwent laceration repair as detailed in procedure note along with tetanus booster. Staff have no other concerns. Stable to discharge back to longterm. Strict ED return precautions were provided. Return in 7 days for suture removal. All questions answered prior to departure. Last Recorded V/S: Last Vital Signs Temp 36.2 C 09/29/19 08:00 Pulse 90 09/29/19 08:00 Resp 18 09/29/19 08:00 BP 118/82 09/29/19 08:00 Pulse Ox 96 09/29/19 08:00 - Orders/Labs/Meds Meds: Medications Discontinued Medications Generic Name Dose Route Start Last Admin Trade Name Irvin PRN Reason Stop Dose Admin Bupivacaine HCl 10 ml 09/29/19 08:48 09/29/19 10:30 Sensorcaine-Mpf 0.5% INJECT 09/29/19 08:49 10 ml ONETIME ONE Administration Departure - Departure Time of Disposition: 11:35 Disposition: Home, W Home Health Agency 06 Condition: Good Clinical Impression: Accidental fall Qualifiers: Encounter type: initial encounter Qualified Code(s): W19.XXXA - Unspecified fall, initial encounter Occipital scalp laceration Qualifiers: Encounter type: initial encounter Qualified Code(s): S01.01XA - Laceration without foreign body of scalp, initial encounter - Discharge Information *PRESCRIPTION DRUG MONITORING PROGRAM REVIEWED*: Not Applicable *COPY OF PRESCRIPTION DRUG MONITORING REPORT IN PATIENT JEAN-PIERRE: Not Applicable Instructions: Fall Prevention in the Home, Adult, [id number], Sutures, [place], or Adhesive Wound Closure Referrals: Layton Hu MD [Primary Care Provider] - Forms: ED Department Discharge Additional Instructions: Return to the emergency department in 7 days to have salvador removed. The following information is given to patients seen in the emergency department who are being discharged. This information is to outline your options for follow-up care. We provide all patients seen in our emergency department with a follow-up referral. The need for follow-up, as well as the timing and circumstances, are variable depending upon the specifics of your emergency department visit. If you don't have a primary care physician on staff, we will provide you with a referral. We always advise you to contact your personal physician following an emergency department visit to inform them of the circumstance of the visit and for follow-up with them and/or the need for any referrals to a consulting specialist. The emergency department will also refer you to a specialist when appropriate. This referral assures that you have the opportunity for follow-up care with a specialist. All of these measure are taken in an effort to provide you with optimal care, which includes your follow-up. Under all circumstances we always encourage you to contact your private physician who remains a resource for coordinating your care. When calling for follow-up care, please make the office aware that this follow-up is from your recent emergency room visit. If for any reason you are refused follow-up, please contact the [facility] Emergency Department at and asked to speak to the emergency department charge nurse. If you do not have a primary care physician that is caring for you, you can contact these clinics below to set up an appointment to establish care: [facility] - [facility] [address] [place] [phone] [facility] [address] [place] [id number] Sepsis Event Note (ED) - Evaluation Sepsis Screening Result: No Definite Risk - Focused Exam Vital Signs: Vital Signs Temp Pulse Resp BP Pulse Ox 09/29/19 08:00 36.2 C 90 18 118/82 96
== END 2019-09-29 11:45 | disposition home health service (06) ==
LOC: MW.ED 07:44
DX: S01.01XA Laceration without foreign body of scalp, initial encounter (principal); G40.909 Epilepsy, unspecified, not intractable, without status epilepticus; G80.9 Cerebral palsy, unspecified; F41.9 Anxiety disorder, unspecified; Z79.899 Other long term (current) drug therapy; W01.198A Fall on same level from slipping, tripping and stumbling with subsequent striking against other object, initial encounter
CPT/HCPCS: 12002; 70450; 72125; 99283; J3490

== ENCOUNTER 2019-10-07 11:15 | Emergency (ER) | payer MEDICAID ==
[2019-10-07 11:34] VITALS: BP 108/82; PULSE 60
--- NOTE | 2019-10-10 11:49 | PCM.SN.2 ---
- Free Text/Narrative Note: Nurse visit only for suture/staple removal. Not seen by physician or midlevel, and my involvement was not requested by the registered nurse.
== END 2019-10-07 11:28 | disposition home or self-care (01) ==
LOC: MW.ED 11:15
DX: S01.01XD Laceration without foreign body of scalp, subsequent encounter (principal); X58.XXXD Exposure to other specified factors, subsequent encounter
CPT/HCPCS: 99281

== ENCOUNTER 2019-11-01 11:31 | Emergency (ER) | payer MEDICAID ==
[2019-11-01 11:38] VITALS: BP 108/68
--- NOTE | 2019-11-01 12:07 | EDM.PDOC ---
ED HPI GENERAL MEDICAL PROBLEM - General Chief Complaint: General Stated Complaint: LACERATION FROM FALL Time Seen by Provider: 11/01/19 11:33 Source of Information: Reports: Patient History Limitations: Reports: No Limitations - History of Present Illness INITIAL COMMENTS - FREE TEXT/NARRATIVE: Patient presents with his caregiver from the [facility] where he has been a resident for 20 years. Severely challenged and physically disabled. The caregiver states that he had been wandering around the living room and then went to use the bathroom with his walker. He came out of the bathroom and they noticed a laceration on his head. His behavior since has been completely baseline and he has no complaints. No vomiting, breathing problems, complaints of pain. He is averbal except for grunts and moans. Patient is familiar to me as well and his functioning and behavior are at his usual baseline. Laceration superficial to the scalp on the crown of the head. - Related Data Allergies Allergy/AdvReac Type Severity Reaction Status Date / Time No Known Allergies Allergy Verified 10/07/19 11:35 Home Meds: Home Meds Melatonin 12 mg PO BEDTIME 12/09/13 [History] Multivitamins/Minerals [Vitamins and Minerals] 1 tab PO DAILY 12/09/13 [History] OXcarbazepine [Trileptal] 300 mg PO TID 12/09/13 [History] Riboflavin (Vitamin B2) [Riboflavin] 400 mg PO DAILY 12/09/13 [History] Ubidecarenone [Coenzyme Q10] 300 mg PO DAILY 12/09/13 [History] Ascorbic Acid [Vitamin C] 1,000 mg PO DAILY 07/25/16 [History] Cholestyramine/Sucrose [Cholestyramine] 4 gm PO WITHDINNER 07/25/16 [History] Cyanocobalamin (Vitamin B-12) [B-12] 1,000 mcg PO DAILY 07/25/16 [History] Folic Acid 0.4 mg PO DAILY 07/25/16 [History] Vitamin E 400 unit PO DAILY 07/25/16 [History] Thiamine [Vitamin B-1] 400 mg PO DAILY 02/02/18 [History] traZODone HCl [Trazodone HCl] 50 mg PO BEDTIME 02/16/18 [History] Past Medical History Other HEENT History: ratna syndrome Cardiovascular History: Reports: None Respiratory History: Reports: Pneumothorax, Other (See Below) Other Respiratory History: pulomary stenosis, 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 Neurological History: Reports: Cerebral Palsy, Seizure, Other (See Below) Other Neuro History: spastic quadriplegia Psychiatric History: Reports: Anxiety - Infectious Disease History Infectious Disease History: Reports: None - Past Surgical History HEENT Surgical History: Reports: Eye Surgery, Other (See Below) Other HEENT Surgeries/Procedures: surgery to open tear ducts, dental surgery GI Surgical History: Reports: Colostomy Musculoskeletal Surgical History: Reports: Other (See Below) Other Musculoskeletal Surgeries/Procedures:: lengthen of heel cords Social & Family History - Family History Family Medical History: Noncontributory - Tobacco Use Smoking Status *Q: Never Smoker - Caffeine Use Caffeine Use: Reports: Coffee - Recreational Drug Use Recreational Drug Use: No ED ROS GENERAL - Review of Systems Review Of Systems: Comprehensive ROS is negative, except as noted in HPI. ED EXAM, GENERAL - Physical Exam Exam: See Below Exam Limited By: Physical Impairment General Appearance: Alert, No Apparent Distress, Other (Baseline Physical and mental functioning) Eye Exam: Bilateral Eye: Other (Closed much of the time) Ears: Normal External Exam Nose: Normal Inspection Throat/Mouth: Normal Inspection Head: Other (5 cm semicircular superficial scalp laceration at the crown) Neck: Normal Inspection Respiratory/Chest: No Respiratory Distress Cardiovascular: Normal Peripheral Pulses Extremities: Normal Inspection Neurological: Alert Psychiatric: Other (Baseline) Skin Exam: Warm, Dry, Intact, Normal Color, No Rash Lymphatic: No Adenopathy ED GENERAL MEDICAL PROCEDURES - Laceration/Wound Repair Head Lac/wound length in cm: 5 Appearance: Superficial Skin Prep: Chlorhexidine (Hibiciens) Closed with: [place] (6) Course - Vital Signs Last Recorded V/S: Last Vital Signs Temp 35.8 C L 11/01/19 11:35 Pulse Resp 18 11/01/19 11:35 BP 108/68 11/01/19 11:35 Pulse Ox Departure - Departure Time of Disposition: 12:10 Disposition: Home, Self-Care 01 Condition: Good Clinical Impression: Laceration - Discharge Information Referrals: [facility] [Outside] [facility] [Outside] Additional Instructions: The following information is given to patients seen in the emergency department who are being discharged to home. This information is to outline your options for follow-up care. We provide all patients seen in our emergency department with a follow-up referral. The need for follow-up, as well as the timing and circumstances, are variable depending upon the specifics of your emergency department visit. If you don't have a primary care physician on staff, we will provide you with a referral. We always advise you to contact your personal physician following an emergency department visit to inform them of the circumstance of the visit and for follow-up with them and/or the need for any referrals to a consulting specialist. The emergency department will also refer you to a specialist when appropriate. This referral assures that you have the opportunity for follow-up care with a specialist. All of these measure are taken in an effort to provide you with optimal care, which includes your follow-up. Under all circumstances we always encourage you to contact your private physician who remains a resource for coordinating your care. When calling for follow-up care, please make the office aware that this follow-up is from your recent emergency room visit. If for any reason you are refused follow-up, please contact the Emergency Department at and asked to speak to the emergency department charge nurse. 1. Staple removal 5 to 7 days at the clinic, ER or urgent care Sepsis Event Note (ED) - Evaluation Sepsis Screening Result: No Definite Risk - Focused Exam Vital Signs: Vital Signs Temp Resp BP 11/01/19 11:35 35.8 C L 18 108/68
== END 2019-11-01 12:23 | disposition home or self-care (01) ==
LOC: MW.ED 11:31
DX: S01.01XA Laceration without foreign body of scalp, initial encounter (principal); G80.9 Cerebral palsy, unspecified; R56.9 Unspecified convulsions; F41.9 Anxiety disorder, unspecified; Z79.899 Other long term (current) drug therapy; X58.XXXA Exposure to other specified factors, initial encounter
CPT/HCPCS: 12002; 99282; 99282-25

== ENCOUNTER 2019-11-11 09:38 | Emergency (ER) | payer MEDICAID ==
[2019-11-11 09:57] VITALS: BP 119/79; PULSE 89
== END 2019-11-11 09:50 | disposition home or self-care (01) ==
LOC: MW.ED 09:38
DX: S01.01XD Laceration without foreign body of scalp, subsequent encounter (principal)
CPT/HCPCS: 99281

== ENCOUNTER 2020-07-04 09:35 | Emergency (ER) | payer MEDICAID ==
[2020-07-04 10:00] VITALS: PULSE 92
--- NOTE | 2020-07-04 10:14 | EDM.PDOC ---
ED HPI GENERAL MEDICAL PROBLEM - General Chief Complaint: Neuro Symptoms/Deficits Stated Complaint: MULTIPLE DROP SEIZURES Time Seen by Provider: 07/04/20 10:00 Source of Information: Reports: Patient History Limitations: Reports: No Limitations - History of Present Illness INITIAL COMMENTS - FREE TEXT/NARRATIVE: HISTORY AND PHYSICAL: History of present illness: Patient is a 39-year-old male who presents to the emergency room with caregiver with concern of prolonged "drop seizure". Patient has cognitive impairment and a past medical history of seizure, spastic quadriplegia, and cerebral palsy. Patient is living in the [facility] and does get 24-hour care. Today the caregivers were walking him to the bathroom with an assist x2. As he was sitting down he had a brief drop seizure (he collapsed, but the staff were holding him, sat him down on the toilet). He did not fall or hit his head. He quickly was able back to his "normal" but his left leg remained stiff. He typically drags his left leg behind him slightly when ambulating with the walker, but now was unable to bend it. The caregiver states this lasted for about 2 minutes. Afterwards he was fully ambulatory and using the leg per usual. Patient denies any fever, chills, headache, change in vision, or ear/throat pain. Denies any chest pain, back pain, shortness of breath or cough. Denies any GI or symptoms. Patient has been eating and drinking appropriately. He did see Dr. Hu last week and had a routine evaluation including lab work, all was "normal". No recent changes in medication regimen. Review of systems: As per history of present illness and below otherwise all systems reviewed and negative. Past medical history: As per history of present illness and as reviewed below otherwise noncontributory. Surgical history: As per history of present illness and as reviewed below otherwise noncontributory. Social history: See social history for further information Family history: As per history of present illness and as reviewed below otherwise noncontributory. Physical exam: General: Well developed and well nourished. Alert and orientated x 3. Nontoxic in appearance and in no acute distress. Vital signs are stable and have been reviewed by me. Nursing notes were reviewed. HEENT: Atraumatic, normocephalic, pupils equal and reactive bilaterally, negative for conjunctival pallor or scleral icterus, mucous membranes moist, TMs normal bilaterally, throat clear, neck supple, nontender, trachea midline. No drooling or trismus noted. No meningeal signs. No hot potato voice noted. Lungs: Clear to auscultation bilaterally. No wheezes, rales, or rhonchi. Chest nontender. Normal work of breathing, no accessory muscles used. Heart: S1S2, regular rate and rhythm without overt murmur, gallops, or rubs. No JVD. No peripheral edema Abdomen: Soft, nondistended, nontender. Normoactive bowel sounds. Negative for masses or costovertebral tenderness. Pelvis: Stable nontender. Genitourinary/Rectal: Deferred. Skin: Intact, warm, dry. No lesions or rashes noted. Hematologic: No petechiae or purpra. Mucosa appropriate color and normal nail bed color and refill. Extremities: Atraumatic, moves all extremities per self without difficulty or deficits, negative for cords or calf pain. Neurovascular unremarkable. Neuro: Awake, alert, oriented. Cranial nerves II through XII unremarkable. Cerebellum unremarkable. Motor and sensory unremarkable throughout. Exam nonfocal. Psychiatric: Mood and affect are appropriate. Normal thought process. Answering questions appropriately. Notes: *This patient was seen and evaluated during the 2019 SARS-CoV-2 novel coronavirus pandemic period. Community viral transmission is ongoing at time of this encounter and the emergency department is operating under pandemic response procedures. This patient is acting appropriately and moving all extremities. The incidence that was of concern, the patient was not flaccid or weakness - the left leg was stiff. We discussed diagnostic options with caregiver and mom on the phone. Agreeable to basic labs, but declines the head CT. Which I feel is reasonable. Lab work is unremarkable. VSS. He is acting appropriately and moving/active. He is up ambulating with is walker (usual). I have talked with the patient/caregiver about today's findings, in addition to providing specific de tails for plan of care. Encouraged them to follow up with Reassessment at the time of disposition demonstrates that the patient is in no acute distress. The patient is stable for discharge, counseling was provided and we discussed in great detail signs and symptoms that would prompt them to return to the Emergency Department. Medication, follow up and supportive care measures were reviewed and discussed. Voices understanding and is agreeable to plan of care. Denies any further questions or concerns at this time. Diagnostics: CBC, CMP, Declined Head CT Therapeutics: None Prescription: None Impression: Seizure Plan: 1. You were evaluated today on an emergent basis. Your lab work was normal. Due to Gulshan's history of seizures and prolonged episode today, I would like you to touch base with your Neurologist. They may want to see you to re-evulate. 2. You can alternate Tylenol and ibuprofen as needed for pain and fever management. 3. We encourage you to follow up with your primary care provider in the next few days for re-evaluation and further care/management. 4. If your symptoms should worsen, new symptoms develop or any of the signs and symptoms we discussed should arise please return to the emergency room or call 911 (if needed). Definitive disposition and diagnosis as appropriate pending reevaluation and review of above. - Related Data Allergies Allergy/AdvReac Type Severity Reaction Status Date / Time No Known Allergies Allergy Verified 07/04/20 09:51 Home Meds: Home Meds Melatonin 12 mg PO BEDTIME 12/09/13 [History] Multivitamins/Minerals [Vitamins and Minerals] 1 tab PO DAILY 12/09/13 [History] OXcarbazepine [Trileptal] 300 mg PO TID 12/09/13 [History] Riboflavin (Vitamin B2) [Riboflavin] 400 mg PO DAILY 12/09/13 [History] Ubidecarenone [Coenzyme Q10] 300 mg PO DAILY 12/09/13 [History] Ascorbic Acid [Vitamin C] 1,000 mg PO DAILY 07/25/16 [History] Cholestyramine/Sucrose [Cholestyramine] 4 gm PO WITHDINNER 07/25/16 [History] Cyanocobalamin (Vitamin B-12) [B-12] 1,000 mcg PO DAILY 07/25/16 [History] Folic Acid 0.4 mg PO DAILY 07/25/16 [History] Vitamin E 400 unit PO DAILY 07/25/16 [History] Thiamine [Vitamin B-1] 400 mg PO DAILY 02/02/18 [History] traZODone HCl [Trazodone HCl] 50 mg PO BEDTIME 02/16/18 [History] Cetirizine [ZyrTEC] 10 mg PO DAILY 07/04/20 [History] Past Medical History Other HEENT History: ratna syndrome Cardiovascular History: Reports: None Respiratory History: Reports: Pneumothorax, Other (See Below) Other Respiratory History: pulomary stenosis, 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 Neurological History: Reports: Cerebral Palsy, Seizure, Other (See Below) Other Neuro History: spastic quadriplegia Psychiatric History: Reports: Anxiety Hematologic History: Reports: None Immunologic History: Reports: None - Infectious Disease History Infectious Disease History: Reports: None - Past Surgical History HEENT Surgical History: Reports: Eye Surgery, Other (See Below) Other HEENT Surgeries/Procedures: surgery to open tear ducts, dental surgery GI Surgical History: Reports: Colostomy Other GI Surgeries/Procedures: bowel surgery Musculoskeletal Surgical History: Reports: Other (See Below) Other Musculoskeletal Surgeries/Procedures:: lengthen of heel cords Social & Family History - Family History Family Medical History: No Pertinent Family History - Caffeine Use Caffeine Use: Reports: Coffee ED ROS GENERAL - Review of Systems Review Of Systems: Comprehensive ROS is negative, except as noted in HPI. ED EXAM, NEURO - Physical Exam Exam: See Below (See dictation) Course - Vital Signs Last Recorded V/S: Last Vital Signs Temp 98.8 F 07/04/20 09:40 Pulse 92 07/04/20 09:40 Resp BP 129/70 07/04/20 09:40 Pulse Ox 96 07/04/20 09:40 - Orders/Labs/Meds Labs: Laboratory Tests 07/04/20 07/04/20 Range/Units 10:25 10:25 WBC 5.77 (4.0-11.0) K/uL RBC 4.50 (4.50-5.90) M/uL Hgb 15.1 (13.0-17.0) g/dL Hct 44.3 (38.0-50.0) % MCV 98.4 H (80.0-98.0) fL MCH 33.6 H (27.0-32.0) pg MCHC 34.1 (31.0-37.0) g/dL RDW Std Deviation 52.9 (28.0-62.0) fl RDW Coeff of Yolanda 15 (11.0-15.0) % Plt Count 199 (150-400) K/uL MPV 8.60 (7.40-12.00) fL Neut % (Auto) 74.9 (48.0-80.0) % Lymph % (Auto) 16.6 (16.0-40.0) % Baker % (Auto) 8.0 (0.0-15.0) % Eos % (Auto) 0.3 (0.0-7.0) % Baso % (Auto) 0.2 (0.0-1.5) % Neut # (Auto) 4.3 (1.4-5.7) K/uL Lymph # (Auto) 1.0 (0.6-2.4) K/uL Baker # (Auto) 0.5 (0.0-0.8) K/uL Eos # (Auto) 0.0 (0.0-0.7) K/uL Baso # (Auto) 0.0 (0.0-0.1) K/uL Nucleated RBC % 0.0 /100WBC Nucleated RBCs # 0 K/uL Sodium 137 (136-148) mmol/L Potassium 3.9 (3.5-5.1) mmol/L Chloride 101 (98-107) mmol/L Carbon Dioxide 27.3 (21.0-32.0) mmol/L BUN 22 H (7.0-18.0) mg/dL Creatinine 0.8 (0.8-1.3) mg/dL Est Cr Clr Drug Dosing 68.51 mL/min Estimated GFR (MDRD) > 60.0 ml/min Glucose 100 (74-106) mg/dL Calcium 8.5 (8.5-10.1) mg/dL Total Bilirubin 0.2 (0.2-1.0) mg/dL AST 26 (15-37) IU/L ALT 39 (14-63) IU/L Alkaline Phosphatase 161 H (46-116) U/L Total Protein 7.6 (6.4-8.2) g/dL Albumin 4.0 (3.4-5.0) g/dL Globulin 3.6 (2.6-4.0) g/dL Albumin/Globulin Ratio 1.1 (0.9-1.6) Departure - Departure Time of Disposition: 10:45 Disposition: Home, Self-Care 01 Clinical Impression: Seizure - Discharge Information Instructions: Seizure, Adult, [id number] Referrals: Layton Hu MD [Primary Care Provider] - Forms: ED Department Discharge Additional Instructions: The following information is given to patients seen in the emergency department who are being discharged to home. This information is to outline your options for follow-up care. We provide all patients seen in our emergency department with a follow-up referral. The need for follow-up, as well as the timing and circumstances, are variable depending upon the specifics of your emergency department visit. If you don't have a primary care physician on staff, we will provide you with a referral. We always advise you to contact your personal physician following an emergency department visit to inform them of the circumstance of the visit and for follow-up with them and/or the need for any referrals to a consulting specialist. The emergency department will also refer you to a specialist when appropriate. This referral assures that you have the opportunity for follow-up care with a specialist. All of these measure are taken in an effort to provide you with optimal care, which includes your follow-up. Under all circumstances we always encourage you to contact your private physician who remains a resource for coordinating your care. When calling for follow-up care, please make the office aware that this follow-up is from your recent emergency room visit. If for any reason you are refused follow-up, please contact the [facility] at and asked to speak to the emergency department charge nurse. [facility] [address] [place], [place] [id number] [place] [address] Thank you for choosing the [facility] emergency department in [place] for your medical needs today. It was a pleasure caring for you. Today you were seen in the emergency department for seizure. 1. You were evaluated today on an emergent basis. Your lab work was normal. Due to Gulshan's history of seizures and prolonged episode today, I would like you to touch base with your Neurologist. They may want to see you to further assess you. 2. You can alternate Tylenol and ibuprofen as needed for pain and fever management. 3. We encourage you to follow up with your primary care provider in the next few days for re-evaluation and further care/management. 4. If your symptoms should worsen, new symptoms develop or any of the signs and symptoms we discussed should arise please return to the emergency room or call 911 (if needed). Sepsis Event Note (ED) - Evaluation Sepsis Screening Result: No Definite Risk - Focused Exam Vital Signs: Vital Signs Temp Pulse BP Pulse Ox 07/04/20 09:40 98.8 F 92 129/70 96
[2020-07-04 10:58] LABS: BLOOD UREA NITROGEN,BUN 22 mg/dL (7.0-18.0); CARBON DIOXIDE,CO2 27.3 mmol/L (21.0-32.0); CHLORIDE,CL 101 mmol/L (98-107); GLUCOSE RANDOM 100 mg/dL (74-106); POTASSIUM,K 3.9 mmol/L (3.5-5.1); SODIUM,NA 137 mmol/L (136-148)
[2020-07-04 11:35] VITALS: BP 111/77
== END 2020-07-04 11:35 | disposition home or self-care (01) ==
LOC: MW.ED 09:35
DX: R56.9 Unspecified convulsions (principal)
CPT/HCPCS: 36415; 80053; 85025; 99283; 99284

== ENCOUNTER 2022-05-08 20:05 | Inpatient (IN) | payer MEDICAID ==
[2022-05-08] MEDS ORDERED: Sodium Chloride 0.9% 2.5 ML Syringe FLUSH PRN (20:55)
[2022-05-08] MEDS ORDERED: Sodium Chloride 0.9% 10 ML Syringe FLUSH PRN (20:55)
[2022-05-08] MEDS ORDERED: Sodium Chloride 0.9% 1,000 ML IV ONE (21:02)
[2022-05-08 23:12] LABS: CARBON DIOXIDE,CO2 25.2 mmol/L (21.0-32.0); POTASSIUM,K 3.8 mmol/L (3.5-5.1)
[2022-05-09] MEDS ORDERED: Iopamidol 755 MG/ML 500 ML Multipack Bottle IVPUSH STA (00:22)
[2022-05-09] MEDS ORDERED: Lidocaine 2% Viscous Solution 15 ML UD PO ONE (02:16)
[2022-05-09] MEDS ORDERED: Midazolam 1 MG/ML 2 ML SDV IVPUSH ONE ×2 (02:16→03:22)
[2022-05-09] MEDS ORDERED: Midazolam 1 MG/ML 2 ML SDV ONE (03:14)
[2022-05-09] MEDS: Haloperidol Lactate 5 MG/ML SDV IM ONE ×2 (03:36→04:38)
[2022-05-09] MEDS ORDERED: Sodium Chloride 0.9% 1,000 ML IV ONE (03:45)
[2022-05-09 04:06] LABS: CORONAVIRUS COVID-19 NAA NEGATIVE (NEGATIVE); INFLUENZA A NAA NEGATIVE (NEGATIVE); INFLUENZA B NAA NEGATIVE (NEGATIVE); RESPIRATORY SYNCYTIAL VIR NAA NEGATIVE (NEGATIVE)
[2022-05-09] MEDS ORDERED: Ondansetron 4 MG/2 ML SDV IVPUSH PRN (05:43)
[2022-05-09] MEDS ORDERED: HYDROmorphone 1 MG/ML Syringe IVPUSH PRN (05:44)
[2022-05-09] MEDS ORDERED: Sodium Chloride 0.9% 500 ML IV SCH (05:45)
[2022-05-09] MEDS ORDERED: Acetaminophen 1,000 MG in Premix Bag 1 BAG IV PRN (05:45)
[2022-05-09] MEDS: Dextrose 5%-0.9% NaCl with KCl 1,000 ML IV SCH ×2 (06:44→23:34)
[2022-05-09] MEDS ORDERED: Sodium Chloride 0.9% 10 ML Syringe FLUSH PRN (08:19)
[2022-05-09] MEDS ORDERED: Sodium Chloride 0.9% 2.5 ML Syringe FLUSH PRN (08:19)
[2022-05-09] MEDS ORDERED: LORazepam 2 MG/ML SDV IVPUSH PRN (09:06)
[2022-05-09] MEDS: Pantoprazole 40 MG in Sodium Chloride 0.9% 10 ML IVPUSH SCH (09:24)
[2022-05-09] MEDS ORDERED: Cefepime 2 GM Vial IVPUSH SCH (10:19)
[2022-05-09] MEDS: Cefepime 2 GM in Sodium Chloride 0.9% 50 ML IV SCH ×2 (10:51→18:48)
[2022-05-09] MEDS: Melatonin 3 MG Tab PO SCH (20:56)
[2022-05-09] MEDS: traZODone 50 MG Tab PO SCH (20:56)
[2022-05-09] MEDS: Gabapentin 100 MG Cap PO SCH (20:56)
[2022-05-09] MEDS: OXcarbazepine 300 MG Tab PO SCH ×2 (20:57→21:06)
[2022-05-10] MEDS: Cefepime 2 GM in Sodium Chloride 0.9% 50 ML IV SCH ×3 (03:07→17:44)
[2022-05-10] MEDS: OXcarbazepine 300 MG Tab PO SCH ×4 (06:00→22:43)
[2022-05-10 07:56] LABS: CARBON DIOXIDE,CO2 21.5 mmol/L (21.0-32.0)
[2022-05-10] MEDS: Pantoprazole 40 MG in Sodium Chloride 0.9% 10 ML IVPUSH SCH (08:30)
[2022-05-10] MEDS ORDERED: Magnesium Sulfate/Water 2 GM in Premix Bag 1 BAG IV ONE (10:30)
[2022-05-10] MEDS ORDERED: Magnesium Sulfate (4.06 MEQ/ML) 5 GM/10 ML SDV IV ONE (10:30)
[2022-05-10] MEDS ORDERED: Phosphorus #1 250 MG Tab PO ONE (10:30)
[2022-05-10] MEDS: Melatonin 3 MG Tab PO SCH (20:28)
[2022-05-10] MEDS: traZODone 50 MG Tab PO SCH (20:29)
[2022-05-10] MEDS: Gabapentin 100 MG Cap PO SCH (20:29)
[2022-05-11] MEDS: Cefepime 2 GM in Sodium Chloride 0.9% 50 ML IV SCH ×2 (03:20→11:47)
[2022-05-11] MEDS: OXcarbazepine 300 MG Tab PO SCH (05:16)
[2022-05-11 06:33] LABS: CARBON DIOXIDE,CO2 25.2 mmol/L (21.0-32.0); POTASSIUM,K 3.7 mmol/L (3.5-5.1)
[2022-05-11] MEDS: Pantoprazole 40 MG in Sodium Chloride 0.9% 10 ML IVPUSH SCH (08:54)
[2022-05-11 08:55] VITALS: BP 88/73; PULSE 77
== END 2022-05-11 11:45 | DRG 391 ==
LOC: MW.ED 20:05 → MW.MS 05-09 02:19 → OBSVTOIN 05-09 09:24 → MW.MS 05-09 13:28
PROVIDERS: ADMIT Internal Medicine; ATTEND Internal Medicine
DX: K56.609 Unspecified intestinal obstruction, unspecified as to partial versus complete obstruction (principal); K59.00 Constipation, unspecified; G80.0 Spastic quadriplegic cerebral palsy; J69.0 Pneumonitis due to inhalation of food and vomit; H50.89 Other specified strabismus; E86.0 Dehydration; Z20.822 Contact with and (suspected) exposure to COVID-19; G40.909 Epilepsy, unspecified, not intractable, without status epilepticus; F41.9 Anxiety disorder, unspecified; Z98.890 Other specified postprocedural states; Z79.899 Other long term (current) drug therapy
CPT/HCPCS: 0241U; 36415; 51701; 71045; 71045-26; 74018; 74018-26; 74177; 74177-26; 80048; 80053; 81001; 83690; 83735; 84100; 85025; 85027; 87086; 87088; 87186; 96360; 96361; 99285; 99285-25; A9270-GY; C9113; J0131; J0692; J1630; J1953; J2250; J3475; J3480; J3490; J7030; J7040; J7050; J7060; Q9967

== ENCOUNTER 2022-07-08 07:23 | Emergency (ER) | payer MEDICAID ==
[2022-07-08 07:53] LABS: BASOPHILS PERCENT AUTO 0.2 % (0.0-1.5); EOSINOPHILS PERCENT AUTO 0.7 % (0.0-7.0); HEMATOCRIT 44.4 % (38.0-50.0); HEMOGLOBIN 15.4 g/dL (13.0-17.0); LYMPHOCYTES ABSOLUTE AUTO 0.8 K/uL (0.6-2.4); LYMPHOCYTES PERCENT AUTO 18.2 % (16.0-40.0); MEAN CORPUSCULAR HEMOGLOBIN 33.7 pg (27.0-32.0); MEAN CORPUSCULAR HGB CONC 34.7 g/dL (31.0-37.0); MEAN CORPUSCULAR VOLUME 97.2 fL (80.0-98.0); MONOCYTES ABSOLUTE AUTO 0.4 K/uL (0.0-0.8); MONOCYTES PERCENT AUTO 8.3 % (0.0-15.0); NEUTROPHILS ABSOLUTE AUTO 3.2 K/uL (1.4-5.7); NEUTROPHILS PERCENT AUTO 72.6 % (48.0-80.0); PLATELET COUNT,PLT 186 K/uL (150-400); RED BLOOD CELL COUNT 4.57 M/uL (4.50-5.90); WHITE BLOOD CELL COUNT,WBC 4.46 K/uL (4.0-11.0)
[2022-07-08 08:33] LABS: A/G RATIO 1.2 (0.9-1.6); ALANINE AMINOTRANSFERASE,ALT 36 IU/L (14-63); ALKALINE PHOSPHATASE 164 U/L (46-116); ASPARTATE AMNIOTRANSFERASE,AST 30 IU/L (15-37); BILIRUBIN TOTAL 0.3 mg/dL (0.2-1.0); BLOOD UREA NITROGEN,BUN 20 mg/dL (7.0-18.0); CALCIUM 9.1 mg/dL (8.5-10.1); CARBON DIOXIDE,CO2 30.4 mmol/L (21.0-32.0); CHLORIDE,CL 102 mmol/L (98-107); CREATININE 0.9 mg/dL (0.8-1.3); ESTIMATED GFR 109 mL/min (>60); GLUCOSE RANDOM 106 mg/dL (74-106); POTASSIUM,K 4.2 mmol/L (3.5-5.1); PROTEIN TOTAL,TP 7.3 g/dL (6.4-8.2); SODIUM,NA 140 mmol/L (136-148)
[2022-07-08 09:08] VITALS: BP 91/65; PULSE 78
== END 2022-07-08 09:05 | disposition home or self-care (01) ==
LOC: MW.ED 07:23
DX: Z71.1 Person with feared health complaint in whom no diagnosis is made (principal); Z79.899 Other long term (current) drug therapy
CPT/HCPCS: 36415; 80053; 82947; 85025; 99283; 99284

== ENCOUNTER 2025-01-08 12:09 | Emergency (ER) | payer MEDICARE, MEDICAID ==
[2025-01-08] MEDS: Diphtheria,Pertussis(Acell),Tetanus Vaccine 0.5 ML Syringe IM ONE (12:38)
[2025-01-08] MEDS: Lidocaine 1% with EPINEPHrine 1:100,000 10 ML MDV INFILT ONE (12:40)
[2025-01-08] MEDS: Lidocaine/Epineph/Tetracaine 3 ML Syringe TOP ONE (12:43)
[2025-01-08 13:50] VITALS: BP 115/71; PULSE 84
== END 2025-01-08 13:49 | disposition home or self-care (01) ==
LOC: MW.ED 12:09
DX: S01.111A Laceration without foreign body of right eyelid and periocular area, initial encounter (principal); Z79.899 Other long term (current) drug therapy; Z86.69 Personal history of other diseases of the nervous system and sense organs; W05.0XXA Fall from non-moving wheelchair, initial encounter; Z23 Encounter for immunization
CPT/HCPCS: 12011; 90471; 90715; 99282; A9270; J2004; 99283